=== PATIENT | male | born 2000 | race Caucasian/White ===

== ENCOUNTER 2022-07-08 02:18 | Emergency (ER) | payer BC, SELFPAY ==
[2022-07-08 02:20] VITALS: TEMP 36.7; BMI 28.4
[2022-07-08 02:22] VITALS: BP 151/97; PULSE 114; O2SAT 98
--- NOTE | 2022-07-08 02:50 | RAD_ITS ---
INDICATION: pain EXAMINATION/TECHNIQUE: X-RAY - LEFT XR Ankle Min 3 Views 3 VIEWS COMPARISON: None. FINDINGS: SOFT TISSUES: Anterior and lateral ankle edema. No soft tissue swelling or gas. No radiopaque foreign body. BONES/JOINTS: No acute fracture or subluxation.. Normal alignment. Preservation of the joint space.. Mild anterior distal tibial osteophyte formation. No sclerotic or destructive changes observed. RAD/Ankle min 3 Views IMPRESSION: Findings compatible with anterolateral ankle sprain No acute osseous finding. Mild anterior distal tibial degenerative change. Electronically Signed: Ray Sawant MD at 3:34 EST ,
--- NOTE | 2022-07-08 03:11 | EX.ED.DYSGE1 ---
HPI History of Present Illness Chief Complaint: Lower Extremity Injury Narrative Narrative: Patient is a 21-year-old male with no significant past medical history. He states he was playing in a hockey game in [place] this evening. He states that towards the end of the game that another player hit a slap shot and it struck him in between his pads and skate in the left ankle. He states he had sudden onset of pain following the injury and was unable to finish the game. He states that he has been ambulating with crutches since that time as it is painful to bear weight. He denies any numbness tingling or weakness. He denies any other injury. He states that he drove from [place] to [facility] as he lives here and did not want to be evaluated at an [id number] facility. [facility] Medical History (Updated 07/08/22 @ 03:[address] Heron Schmid DO) Routine sports physical exam Allergy/AdvReac Type Severity Reaction Status Date / Time shellfish derived Allergy Angioedema Verified 07/08/22 02:19 Social History Smoking Status: Never smoker [facility] ED Constitutional Constitutional ED: Denies chills or fever(s) ENT ENT ED: Denies sore throat Cardiovascular Cardiovascular: Denies chest pain Respiratory/Chest Respiratory/Chest: Denies cough or dyspnea Gastrointestinal Gastrointestinal: Denies abdominal pain, diarrhea, nausea or vomiting Genitourinary Genitourinary ED: Denies dysuria Musculoskeletal Musculoskeletal: Reports other Details: Positive left ankle pain Integumentary Denies Abrasions Neurologic Neurologic: Denies headache(s) or paresthesias Hematologic/Lymphatic Hematologic/Lymphatic: Denies easy bleeding or easy bruising EXAM Physical Exam Const Vital Signs: 07/08/22 02:20 07/08/22 02:22 Temperature 98.1 F Temperature Source Temporal Pulse Rate 114 H Blood Pressure 151/97 H Blood Pressure Mean 115 Pulse Ox 98 Oxygen Delivery Method Room Air Positive well nourished and well developed General Appearance ED: well developed Eyes PERRL and EOMs intact bilaterally Neck supple Resp normal respiratory effort and clear to auscultation bilaterally Cardio regular rate and regular rhythm Extremity Extremity Narrative: Left lower extremity is neurovascular intact. No obvious bony deformity or joint effusion. There is soft tissue swelling to the anterior aspect of the left distal tibia and lateral malleolus region consistent with report of trauma. Achilles tendon is intact and ankle ligaments are stable. Active range of motion is slightly decreased secondary to pain. Remainder the exam is normal Neuro oriented x3, CN's II-XII intact bilaterally and no sensory deficits noted Sensorium / Orientation: alert Psych mental status grossly normal Skin no rashes or lesions noted Skin Narrative: Soft tissue swelling to the left distal tibia/ankle region as documented above without obvious ecchymosis present or abrasions MDM MDM MDM Narrative Medical decision making narrative: Patient presented to the ER with report of direct trauma to the left lower leg. By exam he has soft tissue swelling consistent with report of trauma but there is otherwise no bony deformity or joint effusion or ligamentous or tendon injury. However with concern for fracture I did elect to perform a x-ray. The x-ray revealed no acute bony abnormality indicating that the patient's symptoms are secondary to contusion and not a fracture or joint effusion. Therefore at this time he will be given instructions symptomatic care such as crutches and Vish wrap but as he is otherwise neurovascularly intact without acute fracture there is no need for further work-up and he is otherwise safe for discharge Radiography Diagnostic Testing: Three-view x-ray of the left ankle as interpreted by the emergency medicine physician reveals no acute fracture dislocation or foreign body Discharge Plan Triage Chief Complaint: Lower Extremity Injury ED Provider: Heron Schmid Dx/Rx/DC Orders Clinical Impression: Contusion of left tibia Instructions: Bone Contusion Primary Care Provider: Care Physician,No Primary Referrals: Ayah Browning MD [Med Staff - [employer]idential Property [employer]] - Care Physician,No Primary [Primary Care Provider] - Activity Restrictions/Additional Instructions: Your x-rays do not show any type of fracture or dislocation. Your exam does not show any ligamentous or tendon injury. Your history and work-up indicates you have a deep bone bruise which should take roughly 1 to 2 weeks to heal. Please use Tylenol and/or Motrin to help control pain and ice the area for the next 3 to 5 days to help reduce pain and speed healing as well. Please return to the ER should you have any further concerns Disposition Disposition: Home, Self Care
== END 2022-07-08 03:50 | disposition home or self-care (01) ==
PROVIDERS: Emergency Provider Emergency Medicine; Visit Provider Emergency Medicine
DX: S80.12XA Contusion of left lower leg, initial encounter (principal); W21.220A Struck by ice hockey puck, initial encounter; Y92.330 Ice skating rink (indoor) (outdoor) as the place of occurrence of the external cause
CPT/HCPCS: 73610; 99282